=== PATIENT | male | born 1955 | race Caucasian/White ===

== ENCOUNTER → 2018-06-25 | Outpatient (CLI) | payer MEDICARE, OTHER ==
[2018-06-25 12:10] LABS: BASOPHILS # (AUTO) 0.02 x10^3/uL (0-0.1); BASOPHILS % (AUTO) 1 % (0-1); EOSINOPHILS # (AUTO) 0.05 x10^3/uL (0-0.4); EOSINOPHILS % (AUTO) 1 % (1-7); LYMPHOCYTES # (AUTO) 1.37 x10^3/uL (1-3.4); LYMPHOCYTES % (AUTO) 30 % (22-44); MD NO; MEAN CORPUSCULAR HEMOGLOBIN 32.1 pg (27.5-34.5); MEAN CORPUSCULAR HGB CONC 34.5 g/dL (33.2-36.2); MEAN PLATELET VOLUME 6.9 fL (7.4-10.4); MONOCYTES # (AUTO) 0.54 x10^3/uL (0.2-0.8); MONOCYTES % (AUTO) 12 % (2-9); NEUTROPHILS # (AUTO) 2.58 x10^3/uL (1.8-6.8); NEUTROPHILS % (AUTO) 57 % (42-75); PLATELET COUNT 304 x10^3/uL (130-400); RED BLOOD COUNT 4.72 x10^6/uL (4.38-5.82)
[2018-06-25 12:18] LABS: INTERNATIONAL NORMALIZED RATIO 0.93 (0.93-1.1); PROTHROMBIN TIME 9.9 Seconds (9.6-11.5)
[2018-06-25 12:32] LABS: ANION GAP 6 mmol/L (5-15); CALCIUM 8.9 mg/dL (8.5-10.1); CHLORIDE 106 mmol/L (98-107)
[2018-06-25 12:33] LABS: CREATININE 0.87 mg/dL (0.7-1.3)
[2018-06-25 13:32] LABS: HEMOGLOBIN A1C 5.5 % (4.2-6.3)
== END | disposition home or self-care (01) ==
LOC: STAR 10:48
PROVIDERS: ATTEND Orthopaedic Surgery
DX: Z01.818 Encounter for other preprocedural examination (principal); M17.12 Unilateral primary osteoarthritis, left knee
CPT/HCPCS: 36415; 80048; 83036; 85025; 85610; 85730; 87081; 93005

== ENCOUNTER 2018-07-09 05:35 | Day surgery (SDC) | payer MEDICARE, OTHER ==
[~2018-07-09] VITALS: Ht 167.6 cm; Wt 92.0 kg
[~2018-07-09 05:35] MED LIST: None at this Time
[2018-07-09] MEDS ORDERED: LACTATED RINGERS 1,000 ML IV SCH (06:00)
[2018-07-09 06:02] VITALS: BP 150/85
[2018-07-09] MEDS ORDERED: KETOROLAC 60 MG/2 ML ONE (06:12)
[2018-07-09] MEDS ORDERED: ROPIvacaine/PF 0.5%, 30 ML ONE (06:12)
[2018-07-09] MEDS ORDERED: TRANEXAMIC ACID 100 MG/ML, 10ML ONE ×2 (06:12)
[2018-07-09] MEDS ORDERED: SODIUM CHLORIDE 0.9% 50 ML ONE (06:12)
[2018-07-09] MEDS ORDERED: VANCOMYCIN 1,000 MG ONE (06:12)
[2018-07-09] MEDS ORDERED: EPINEPHRINE 1 MG/ML, 1ML ONE (06:12)
[2018-07-09] MEDS ORDERED: MIDAZOLAM 1 MG/ML, 2ML ONE (06:23)
[2018-07-09] MEDS ORDERED: FENTANYL PF 250 MCG/5ML ONE (06:24)
[2018-07-09] MEDS ORDERED: ONDANSETRON 2MG/ML, 2ML IV PRN ×2 (06:30→07:30)
[2018-07-09] MEDS ORDERED: HYDROcodone/APAP 5/325 TABLET PO PRN (06:30)
[2018-07-09] MEDS ORDERED: OXYcodone IR 5MG TABLET PO PRN (06:30)
[2018-07-09] MEDS ORDERED: SENNA/DOCUSATE TABLET PO PRN (06:30)
[2018-07-09] MEDS ORDERED: HYDROmorphone 1 MG/ML, 1ML IV PRN (06:30)
[2018-07-09] MEDS ORDERED: GABAPENTIN 300 MG CAPSULE PO ONE (06:30)
[2018-07-09] MEDS ORDERED: BISACODYL 10 MG SUPP PR PRN (06:30)
[2018-07-09] MEDS ORDERED: ZOLPIDEM 5MG TABLET PO PRN (06:30)
[2018-07-09] MEDS ORDERED: ACETAMINOPHEN 500 MG TABLET PO ONE (06:30)
[2018-07-09] MEDS ORDERED: ACETAMINOPHEN 650 MG/20.3 ML UDC PO PRN (06:30)
[2018-07-09] MEDS ORDERED: SCOPOLAMINE PATCH, 1.5MG PATCH.TD72 TD ONE (06:30)
[2018-07-09] MEDS ORDERED: MAGNESIUM HYDROXIDE 8%, 30ML UDC PO PRN (06:30)
[2018-07-09] MEDS ORDERED: CEFAZOLIN PMX 2GM/50ML 50 ML IVPB SCH ×2 (06:30→15:00)
[2018-07-09] MEDS ORDERED: ONDANSETRON 4 MG TABLET PO PRN (06:30)
[2018-07-09] MEDS ORDERED: DIPHENHYDRAMINE 25 MG CAPSULE PO PRN (06:30)
[2018-07-09] MEDS ORDERED: DEXAMETHASONE 4 MG/ML, 1ML ONE (06:44)
[2018-07-09] MEDS ORDERED: LIDOCAINE-MPF 2% ,5ML ONE (07:16)
[2018-07-09] MEDS ORDERED: BUPIVACAINE/PF 0.25% ONE (07:16)
[2018-07-09] MEDS ORDERED: CEFAZOLIN 1,000 MG ONE (07:16)
[2018-07-09] MEDS ORDERED: PROPOFOL 10 MG/ML, 20ML ONE (07:16)
[2018-07-09] MEDS ORDERED: LABETALOL 20 MG/4 ML ONE (07:16)
[2018-07-09] MEDS ORDERED: ONDANSETRON 2MG/ML, 2ML ONE (07:16)
[2018-07-09] MEDS ORDERED: SCOPOLAMINE PATCH, 1.5MG PATCH.TD72 TD PRN (07:30)
[2018-07-09] MEDS ORDERED: PROMETHAZINE 25 MG/ML, 1ML IV PRN (07:30)
[2018-07-09] MEDS ORDERED: hydrALAzine 20 MG/ML, 1ML IV PRN (07:30)
[2018-07-09] MEDS ORDERED: DIAZEPAM 5 MG/ML, 2ML IVPush PRN (07:30)
[2018-07-09] MEDS ORDERED: MIDAZOLAM 1 MG/ML, 2ML IV PRN (07:30)
[2018-07-09] MEDS ORDERED: FENTANYL PF 100 MCG/2ML IV PRN (07:30)
[2018-07-09] MEDS ORDERED: LABETALOL 5MG/ML, 20ML IV PRN (07:30)
[2018-07-09] MEDS ORDERED: ALBUTEROL/IPRATROPIUM 2.5MG/0.5MG, 3 ML NPPB PRN (07:30)
[2018-07-09] MEDS ORDERED: OXYcodone 5 MG/5 ML ORAL.SOL UDC PO PRN (07:30)
[2018-07-09] MEDS ORDERED: OXYcodone 5 MG/5 ML ORAL.SOL UDC ONE (08:30)
[2018-07-09] MEDS ORDERED: HYDROmorphone 1 MG/ML, 1ML ONE (08:30)
[2018-07-09] MEDS: HYDROmorphone 2 MG/ML, 1ML IVPush PRN ×2 (08:36→08:46)
[2018-07-09] MEDS ORDERED: DOCUSATE 100 MG CAPSULE PO SCH (09:00)
[2018-07-09 09:25] VITALS: BP 148/90
[2018-07-09] MEDS: NS + 20MEQ KCL 1,000 ML IV SCH ×2 (11:11→15:21)
[2018-07-09 15:00] VITALS: BP 118/68
[2018-07-09] MEDS ORDERED: ASPIRIN 81 MG TABLET EC PO SCH (18:00)
[2018-07-09] MEDS ORDERED: OXYC5TAB2 PO (18:04)
[2018-07-09] MEDS ORDERED: TRAM50TA2 PO (18:05)
[2018-07-09] MEDS ORDERED: MELO7.5T31 PO (18:06)
[2018-07-10] MEDS ORDERED: DEXAMETHASONE 4 MG/ML, 1ML IVPush SCH (06:00)
== END 2018-07-09 18:40 | disposition home or self-care (01) ==
LOC: OUT 05:35 → 4NOR 09:15 → OUT 18:40
PROVIDERS: ATTEND Orthopaedic Surgery
DX: M17.12 Unilateral primary osteoarthritis, left knee (principal); G47.33 Obstructive sleep apnea (adult) (pediatric); I10 Essential (primary) hypertension; Z72.89 Other problems related to lifestyle
CPT/HCPCS: 27447; 64447; 97162; 97165; 97535; C1713; C1776; J0171; J0690; J1100; J1170; J1885; J2250; J2405; J2704; J2795; J3010; J3370; J3480; J3490; J7120; G0378

== ENCOUNTER → 2020-02-29 | Outpatient (CLI) | payer OTHER ==
[~2020-02-29] MED LIST changes: +IBUP200T64 PO; +MELO7.5T31 PO; +OXYC5TAB2 PO; +TRAM50TA2 PO
[2020-02-29 16:54] LABS: ANION GAP 3 mmol/L (5-15); CALCIUM 9.3 mg/dL (8.5-10.1); CHLORIDE 108 mmol/L (98-107); CREATININE 0.91 mg/dL (0.7-1.3)
[2020-02-29 16:57] LABS: INTERNATIONAL NORMALIZED RATIO 0.9 (0.93-1.1); PROTHROMBIN TIME 9.3 Seconds (9.6-11.5)
[2020-02-29 17:05] LABS: BASOPHILS % (AUTO) 1 % (0-1); EOSINOPHILS % (AUTO) 1 % (1-7); LYMPHOCYTES % (AUTO) 22 % (22-44); MEAN CORPUSCULAR HEMOGLOBIN 31.8 pg (27.5-34.5); MEAN CORPUSCULAR HGB CONC 33.4 g/dL (33.2-36.2); MEAN PLATELET VOLUME 7.2 fL (7.4-10.4); MONOCYTES % (AUTO) 9 % (2-9); NEUTROPHILS % (AUTO) 67 % (42-75); PLATELET COUNT 339 x10^3/uL (130-400); RED BLOOD COUNT 4.84 x10^6/uL (4.38-5.82); RED CELL DISTRIBUTION WIDTH 13.6 % (9.4-14.8)
[2020-02-29 17:09] LABS: MD NO
== END | disposition home or self-care (01) ==
LOC: STAR 14:30
PROVIDERS: ATTEND Orthopaedic Surgery
DX: Z01.818 Encounter for other preprocedural examination (principal); M17.11 Unilateral primary osteoarthritis, right knee
CPT/HCPCS: 36415; 80048; 83036; 85025; 85610; 85730; 87081; 93005

== ENCOUNTER 2020-03-14 08:26 | Day surgery (SDC) | payer OTHER ==
[~2020-03-14] VITALS: Ht 170.2 cm; Wt 93.3 kg
[~2020-03-14 08:26] MED LIST changes: +ACETAMINOPHEN 650 MG/20.3 ML UDC PO PRN; +BISACODYL 10 MG SUPP PR PRN; +DIPHENHYDRAMINE 25 MG CAPSULE PO PRN; +HYDROcodone/APAP 5/325 TABLET PO PRN; +HYDROmorphone 1 MG/ML, 1ML INJ IV PRN; +MAGNESIUM HYDROXIDE 8%, 30ML UDC PO PRN; +ONDANSETRON 2MG/ML, 2ML IV PRN; +ONDANSETRON 4 MG TABLET PO PRN; +OXYcodone IR 5MG TABLET PO PRN; +SENNA/DOCUSATE TABLET PO PRN; +ZOLPIDEM 5MG TABLET PO PRN
[2020-03-14] MEDS ORDERED: GABAPENTIN 300 MG CAPSULE PO STA (08:46)
[2020-03-14] MEDS ORDERED: CHLORHEXIDINE 15 ML UDC MM STA (08:46)
[2020-03-14] MEDS ORDERED: ACETAMINOPHEN 500 MG TABLET PO STA (08:46)
[2020-03-14] MEDS ORDERED: LACTATED RINGERS 1,000 ML IV ONE (08:51)
[2020-03-14] MEDS ORDERED: DOCUSATE 100 MG CAPSULE PO SCH (09:00)
[2020-03-14] MEDS ORDERED: DEXAMETHASONE 4 MG/ML, 1ML ONE (09:59)
[2020-03-14] MEDS ORDERED: FENTANYL PF 250 MCG/5ML ONE (09:59)
[2020-03-14] MEDS ORDERED: ONDANSETRON 2MG/ML, 2ML ONE (09:59)
[2020-03-14] MEDS ORDERED: TRANEXAMIC ACID 100 MG/ML, 10ML ONE (09:59)
[2020-03-14] MEDS ORDERED: CEFAZOLIN 1,000 MG ONE (09:59)
[2020-03-14] MEDS ORDERED: ROCURONIUM 10 MG/ML,10ML ONE (09:59)
[2020-03-14] MEDS ORDERED: LIDOCAINE 2%, 20ML ONE (09:59)
[2020-03-14] MEDS ORDERED: GLYCOPYRROLATE 0.2MG/1ML, 5ML ONE (09:59)
[2020-03-14] MEDS ORDERED: PROPOFOL 10 MG/ML, 20ML ONE (09:59)
[2020-03-14] MEDS ORDERED: NEOSTIGMINE 1 MG/ML, 10ML ONE (09:59)
[2020-03-14] MEDS ORDERED: DIPHENHYDRAMINE 50 MG/ML, 1ML IVPush PRN (10:30)
[2020-03-14] MEDS ORDERED: DIAZEPAM 5 MG/ML, 2ML IVPush PRN (10:30)
[2020-03-14] MEDS ORDERED: PROMETHAZINE 25 MG/ML, 1ML IVPush PRN (10:30)
[2020-03-14] MEDS ORDERED: ONDANSETRON 2MG/ML, 2ML IVPush PRN (10:30)
[2020-03-14] MEDS ORDERED: LABETALOL 5MG/ML, 20ML IV PRN (10:30)
[2020-03-14] MEDS ORDERED: MEPERIDINE/PF 25MG/0.5ML IVPush PRN (10:30)
[2020-03-14] MEDS ORDERED: ACETAMINOPHEN 325 MG TABLET PO PRN (10:30)
[2020-03-14] MEDS ORDERED: hydrALAzine 20 MG/ML, 1ML IV PRN (10:30)
[2020-03-14] MEDS ORDERED: HYDROmorphone 1 MG/ML, 1ML INJ IVPush PRN (10:30)
[2020-03-14] MEDS ORDERED: OXYcodone 5 MG/5 ML ORAL.SOL UDC PO PRN (10:30)
[2020-03-14] MEDS: FENTANYL PF 100 MCG/2ML IV PRN ×2 (11:30→11:50)
[2020-03-14] MEDS ORDERED: FENTANYL PF 100 MCG/2ML ONE (11:38)
[2020-03-14] MEDS ORDERED: OXYcodone 5 MG/5 ML ORAL.SOL UDC ONE (11:38)
[2020-03-14] MEDS ORDERED: NS + 20MEQ KCL 1,000 ML IV SCH (12:55)
[2020-03-14] MEDS ORDERED: CEFAZOLIN PMX 2GM/50ML 50 ML IVPB SCH (13:00)
[2020-03-14 15:03] VITALS: BP 143/90
[2020-03-14 16:46] VITALS: BP 148/90
[2020-03-14] MEDS ORDERED: ASPIRIN 81 MG TABLET EC PO SCH (18:00)
[2020-03-15] MEDS ORDERED: DEXAMETHASONE 4 MG/ML, 1ML IVPush SCH (06:00)
== END 2020-03-14 17:45 | disposition home or self-care (01) ==
LOC: OUT 08:26 → 2N 12:45 → OUT 17:45
PROVIDERS: ATTEND Orthopaedic Surgery
DX: M17.11 Unilateral primary osteoarthritis, right knee (principal); F12.90 Cannabis use, unspecified, uncomplicated; Z79.1 Long term (current) use of non-steroidal anti-inflammatories (NSAID); Z79.899 Other long term (current) drug therapy; Z72.89 Other problems related to lifestyle; Z96.652 Presence of left artificial knee joint; Z87.891 Personal history of nicotine dependence
CPT/HCPCS: 27447; 36415; 64447; 87635; 97110; 97161; 97165; C1713; C1776; J0171; J0690; J1100; J1885; J2405; J2704; J2710; J2795; J3010; J3370; J3480; J7120; G0378